=== PATIENT | male | born 1960 | race Caucasian/White ===

== ENCOUNTER 2020-06-19 18:36 | Inpatient (IN) ==
[2020-06-19] MEDS ORDERED: Lactated Ringers 1000 ml BAG IV.FLUID IV ONE (19:03)
[2020-06-19] MEDS ORDERED: Adenosine 3 MG/ML 2 ml VIAL (6 mg) IV PUSH ONE (19:04)
[2020-06-19] MEDS ORDERED: cefTRIAXone 1 gm/50 mL NS BAG 1 GM/50 ML BAG IV ONE (19:10)
[2020-06-19 19:25] LABS: Hematocrit 45 % (42-52); Hemoglobin 14.9 g/dL (14.0-18.0); Mean Corpuscular HGB Conc 34 g/dL (31-36); Mean Corpuscular Hemoglobin 27 pg (27-31); Mean Corpuscular Volume 80 fL (80-94); Mean Platelet Volume 8.2 fL (7.4-10.4); Platelet Count 280 10^3/uL (150-450); Red Blood Count 5.55 10^6 /uL (4.18-5.48); Red Cell Distribution Width 15 % (10-15); White Blood Count 23.6 10^3/uL (3.5-10.8)
[2020-06-19 19:27] LABS: ABS Lymphocytes 0.8 10^3/ul (1.0-4.8); ABS Monocytes 1.2 10^3/ul (0-0.8); ABS Neutrophils 21.5 10^3/ul (1.5-7.7); Eosinophil % 0.1 %; Lymphocyte % 3.6 %
[2020-06-19 19:36] LABS: Activated Partial Thrombo Time 28.7 seconds (26.0-38.0); INR 1.14 (0.82-1.09)
[2020-06-19 19:37] LABS: Troponin I 0.01 ng/mL (<0.03)
[2020-06-19 19:38] LABS: Albumin 4.3 g/dL (3.2-5.2); Albumin/Globulin Ratio 1.1 (1-3); C Reactive Protein 43.17 mg/L (<8.01); Calcium 9.7 mg/dL (8.6-10.3); EGFR African American 85.6 (>60); EGFR Non-African American 70.7 (>60); Globulin 3.8 g/dL (2-4); Potassium 4.1 mmol/L (3.5-5.0); Total Bilirubin 0.9 mg/dL (0.2-1.0); Total Protein 8.1 g/dL (6.4-8.9)
[2020-06-19 20:05] LABS: Urine Appearance Turbid; Urine Bilirubin Negative (Negative); Urine Blood 3+ (Negative); Urine Color Amber; Urine Glucose Negative (Negative); Urine Ketones Trace (Negative); Urine Nitrite Positive (Negative); Urine Protein 3+(>=500 mg/dL) (Negative); Urine Specific Gravity 1.017 (1.002-1.030); Urine Urobilinogen Negative (Negative)
[2020-06-19 20:12] LABS: Urine Bacteria 1+ (Absent); Urine Red Blood Cell 3+(>10/hpf) (Absent); Urine Squamous Epithelial Cell Present (Absent); Urine White Blood Cell 3+(>20/hpf) (Absent)
[2020-06-19] MEDS ORDERED: Ondansetron 4 mg VIAL 2 MG/ML 2 ml VIAL IV PRN (21:49)
[2020-06-19] MEDS ORDERED: NS 0.9% 1000 ml BAG 1,000 ML IV SCH (22:00)
[2020-06-19 22:07] LABS: Magnesium 1.7 mg/dL (1.9-2.7)
[2020-06-19] MEDS ORDERED: Albuterol 2.5mg/3 ml (0.083%) NEB.SOLN INH PRN (22:07)
[2020-06-19] MEDS ORDERED: Magnesium Sulfate 2 gm BAG 2 GM/50 ML BAG IVPB ONE (22:13)
[2020-06-19] MEDS: Heparin 5000 UNITS/ML 1 mL VIAL SUBCUT SCH (23:54)
[2020-06-20 02:32] LABS: ABS Lymphocytes 1.1 10^3/ul (1.0-4.8); ABS Monocytes 0.8 10^3/ul (0-0.8); ABS Neutrophils 13.3 10^3/ul (1.5-7.7); Eosinophil % 0.2 %; Hematocrit 36 % (42-52); Mean Corpuscular HGB Conc 34 g/dL (31-36); Mean Corpuscular Hemoglobin 28 pg (27-31); Mean Corpuscular Volume 82 fL (80-94); Mean Platelet Volume 7.9 fL (7.4-10.4); Platelet Count 202 10^3/uL (150-450); Red Blood Count 4.36 10^6 /uL (4.18-5.48); Red Cell Distribution Width 15 % (10-15); White Blood Count 15.2 10^3/uL (3.5-10.8)
[2020-06-20 02:37] LABS: INR 1.27 (0.82-1.09)
[2020-06-20 02:47] LABS: Calcium 8.6 mg/dL (8.6-10.3); EGFR African American 70.2 (>60)
[2020-06-20] MEDS: Heparin 5000 UNITS/ML 1 mL VIAL SUBCUT SCH ×3 (06:16→21:06)
[2020-06-20] MEDS ORDERED: Aspirin EC 81 mg TAB.EC (enteric coated) PO SCH (09:00)
[2020-06-20] MEDS: Aspirin EC 81 mg TAB.EC (enteric coated) PO SCH (10:23)
[2020-06-20] MEDS: DULoxetine DR 60 mg CAP PO SCH (10:23)
[2020-06-20] MEDS: Lactated Ringers 1000 ml BAG 1,000 ML IV SCH ×2 (10:24→19:37)
[2020-06-20] MEDS: oxyCODONE/Acetamin 5/325 mg TAB PO PRN ×2 (11:35→23:32)
[2020-06-20] MEDS: cefTRIAXone 1 gm/50 mL NS BAG 1 GM/50 ML BAG IVPB SCH (19:37)
[2020-06-21 05:49] LABS: Hematocrit 35 % (42-52); Hemoglobin 11.3 g/dL (14.0-18.0); Mean Corpuscular HGB Conc 33 g/dL (31-36); Mean Corpuscular Hemoglobin 27 pg (27-31); Mean Corpuscular Volume 83 fL (80-94); Mean Platelet Volume 8.3 fL (7.4-10.4); Platelet Count 165 10^3/uL (150-450); Red Cell Distribution Width 15 % (10-15); White Blood Count 18.3 10^3/uL (3.5-10.8)
[2020-06-21 06:03] LABS: Calcium 8.4 mg/dL (8.6-10.3); EGFR African American 82.9 (>60); EGFR Non-African American 68.5 (>60); Potassium 4.1 mmol/L (3.5-5.0)
[2020-06-21] MEDS: Heparin 5000 UNITS/ML 1 mL VIAL SUBCUT SCH ×3 (06:20→20:45)
[2020-06-21] MEDS: Aspirin EC 81 mg TAB.EC (enteric coated) PO SCH (09:23)
[2020-06-21] MEDS: DULoxetine DR 60 mg CAP PO SCH (09:23)
[2020-06-21] MEDS: oxyCODONE/Acetamin 5/325 mg TAB PO PRN ×2 (12:26→20:39)
[2020-06-21] MEDS: cefTRIAXone 1 gm/50 mL NS BAG 1 GM/50 ML BAG IVPB SCH (19:36)
[2020-06-22] MEDS: oxyCODONE/Acetamin 5/325 mg TAB PO PRN ×2 (00:54→10:03)
[2020-06-22] MEDS: Heparin 5000 UNITS/ML 1 mL VIAL SUBCUT SCH ×2 (05:19→14:47)
[2020-06-22 06:23] LABS: Hematocrit 34 % (42-52); Hemoglobin 11.1 g/dL (14.0-18.0); Mean Corpuscular HGB Conc 33 g/dL (31-36); Mean Corpuscular Hemoglobin 27 pg (27-31); Mean Corpuscular Volume 82 fL (80-94); Mean Platelet Volume 8.6 fL (7.4-10.4); Platelet Count 170 10^3/uL (150-450); Red Blood Count 4.16 10^6 /uL (4.18-5.48); Red Cell Distribution Width 15 % (10-15); White Blood Count 13.8 10^3/uL (3.5-10.8)
[2020-06-22] MEDS: Aspirin EC 81 mg TAB.EC (enteric coated) PO SCH (09:50)
[2020-06-22] MEDS: DULoxetine DR 60 mg CAP PO SCH (09:50)
[2020-06-22 11:27] VITALS: BP 121/63
[2020-06-22] MEDS: cefTRIAXone 1 gm/50 mL NS BAG 1 GM/50 ML BAG IVPB SCH (14:30)
== END 2020-06-22 15:55 | DRG 720 ==
LOC: ED 18:36 → MEDTELE 21:44
PROVIDERS: ADMIT Internal Medicine; ATTEND Student in an Organized Health Care Education/Training Program